=== PATIENT | female | born 1975 | race Hispanic/Latino ===

== ENCOUNTER 2018-03-16 16:20 | Observation (INO) | payer MEDICAID ==
[2018-03-16 16:26] VITALS: BMI 24.8
--- NOTE | 2018-03-16 16:58 | ED PDOC ---
Arrival/HPI - General Chief Complaint: Lower Extremity Problem/Injury Time Seen by Provider: 03/16/18 16:27 Historian: Patient - History of Present Illness Narrative History of Present Illness (Text): 03/16/18 16:56 42 year old female presents to the Emergency department complaining of blister to left heel. Patient was evaluated yesterday at [facility] and was discharged home with Bactrim and Keflex. Since then, redness to left ankle has increased and blister has increased. Patient denies any fever, chills, chest pain, shortness of breath, nausea, vomiting, diarrhea, urinary symptoms, back pain, neck pain, headache, dizziness, trauma/injury, suicidal/homicidal ideation or any other complaints. Time/Duration: 24 hours Symptom Onset: Gradual Symptom Course: Unchanged Context: Home Past Medical History - Provider Review Nursing Documentation Reviewed: Yes - Infectious Disease Hx of Infectious Diseases: None - Tetanus Immunization Tetanus Immunization: Unknown - Reproductive Menopause: No - Past Medical History Past Medical History: Unable to Obtain - Cardiac Hx Hypertension: No - Pulmonary Hx Tuberculosis: No - Neurological Hx Seizures: No - HEENT Hx HEENT Disorder: No - Renal Hx Renal Disorder: No - Endocrine/Metabolic Hx Endocrine Disorders: No - Hematological/Oncological Hx Cancer: No Hx Hepatitis C: Yes Other/Comment: Genital warts+STD - Integumentary Hx Dermatological Disorder: No - Musculoskeletal/Rheumatological Hx Musculoskeletal Disorders: No - Gastrointestinal Hx Gastrointestinal Disorders: No - Genitourinary/Gynecological Hx Sexually Transmitted Diseases: No - Psychiatric Hx Bipolar Disorder: Yes Hx Depression: No Hx Schizophrenia: Yes Hx Substance Use: No - Past Surgical History Past Surgical History: Unable to Obtain - Anesthesia Hx Anesthesia: No - Suicidal Assessment Feels Threatened In Home Enviroment: No Family/Social History - Physician Review Nursing Documentation Reviewed: Yes Family/Social History: Unknown Family HX Smoking Status: Former Smoker Hx Alcohol Use: No Hx Substance Use: No Hx Substance Use Treatment: No Allergies/Home Meds Allergies/Adverse Reactions: Allergies mortensen Allergy (Intermediate, Verified 03/16/18 16:33) SWELLING apple Allergy (Verified 03/16/18 16:33) DIARRHEA Home Medications: Home Meds Medication Instructions Recorded Confirmed No Known Home Med 03/16/18 03/16/18 Review of Systems - Review of Systems Constitutional: absent: Fevers, Night Sweats ENT: absent: Rhinorrhea Respiratory: absent: SOB Cardiovascular: absent: Chest Pain Gastrointestinal: absent: Diarrhea, Nausea, Vomiting Genitourinary Female: absent: Dysuria Musculoskeletal: absent: Back Pain, Neck Pain Skin: Other (blister to left heel) Neurological: absent: Headache, Dizziness Endocrine: absent: Diaphoresis Physical Exam Vital Signs Reviewed: Yes Vital Signs Temp Pulse Resp BP Pulse Ox 03/16/18 16:26 99.0 F 82 18 128/67 100 Temperature: Afebrile Blood Pressure: Normal Pulse: Regular Respiratory Rate: Normal Appearance: Positive for: Non-Toxic, Comfortable, Other (disheveled) Pain Distress: None Mental Status: Positive for: Alert and Oriented X 3 - Systems Exam Head: Present: Atraumatic, Normocephalic Pupils: Present: PERRL Extroacular Muscles: Present: EOMI Conjunctiva: Present: Normal Mouth: Present: Moist Mucous Membranes Neck: Present: Normal Range of Motion Respiratory/Chest: Present: Clear to Auscultation, Good Air Exchange. No: Respiratory Distress, Accessory Muscle Use Cardiovascular: Present: Regular Rate and Rhythm, Normal S1, S2. No: Murmurs Abdomen: No: Tenderness, Distention, Peritoneal Signs Back: Present: Normal Inspection Upper Extremity: Present: Normal Inspection. No: Cyanosis, Edema Lower Extremity: Present: Normal ROM, Other (large blister to left heel, fissure to left heel, erythema and warmth extending to left ankle). No: Edema Neurological: Present: GCS=15, CN II-XII Intact, Speech Normal Skin: Present: Warm, Dry. No: Rashes Psychiatric: Present: Alert, Oriented x 3, Normal Insight, Normal Concentration Medical Decision Making ED Course and Treatment: 03/16/18 17:02 Impression: 42 year old female presents to the Emergency department complaining of blister to left foot. Plan: -- Blood culture, Wound culture -- Labs -- Clindamycin -- Reassess and disposition Prior Visits: Notes and results from previous visits were reviewed. Progress Notes: 03/16/18 17:02 Patient is currently living in a [facility] and is in current police custody by Tomy GRIFFIN. 03/16/18 19:10 Podiatry resident at bedside and evaluated. Lanced area with 18g needle. Wound sent for culture. Will need admission for IV antibiotics due to crossing a joint and worsening cellulitis. 03/16/18 19:38 Discussed case in detail with medical records secretary. Also discussed case in detail with Dr. Suggs who will admit the patient to the hospitalist. 03/16/18 20:19 - Lab Interpretations Lab Results: 03/16/18 18:11 03/16/18 18:11 Lab Results 03/16/18 18:11: Sodium 142, Potassium 4.4, Chloride 99, Carbon Dioxide 29, Anion Gap 18, BUN 9, Creatinine 0.7, Est GFR ( Amer) > 60, Est GFR (Non- Af Amer) > 60, Random Glucose 105, Calcium 9.4, Total Bilirubin 1.3, AST 35, ALT 48, Alkaline Phosphatase 67, Total Protein 7.3, Albumin 4.3, Globulin 3.0, Albumin/Globulin Ratio 1.4 03/16/18 18:11: WBC 15.3 H D, RBC 4.48, Hgb 13.0, Hct 38.1, MCV 85.0, MCH 29.0, MCHC 34.1, RDW 13.1, Plt Count 247, MPV 9.9, Gran % 79.3 H, Lymph % (Auto) 14.3 L, [place] % (Auto) 5.6, Eos % (Auto) 0.7 L, Baso % (Auto) 0.1, Gran # 12.10 H, Lymph # (Auto) 2.2, [place] # (Auto) 0.9 H, Eos # (Auto) 0.1, Baso # (Auto) 0.02 - Medication Orders Current Medication Orders: Discontinued Medications Clindamycin Phosphate 600 mg/ (Sodium Chloride) 54 mls @ 108 mls/hr IVPB STAT STA PRN Reason: Protocol Stop: 03/16/18 17:18 Last Admin: 03/16/18 18:05 Dose: 108 mls/hr eMAR Start Stop Document 03/16/18 18:05 MS (Rec: 03/16/18 18:28 MS [id number]) Intravenous Solution Start Date 03/16/18 Start Time 18:28 End Date 03/16/18 End time 18:58 Total Infusion Time 30 - Scribe Statement The provider has reviewed the documentation as recorded by the Scribmili Velarde All medical record entries made by the Scribe were at my direction and personally dictated by me. I have reviewed the chart and agree that the record accurately reflects my personal performance of the history, physical exam, medical decision making, and the department course for this patient. I have also personally directed, reviewed, and agree with the discharge instructions and disposition. Disposition/Present on Arrival - Present on Arrival Any Indicators Present on Arrival: No History of DVT/PE: No History of Uncontrolled Diabetes: No Urinary Catheter: No History of Decub. Ulcer: No History Surgical Site Infection Following: None - Disposition Have Diagnosis and Disposition been Completed?: Yes Diagnosis: Cellulitis, Leukocytosis, Bullae Disposition: HOSPITALIZED Disposition Time: 19:11 Patient Plan: Observation Patient Problems: Current Active Problems Problem Status Onset Bullae Acute Cellulitis Acute Leukocytosis Acute Condition: FAIR
[2018-03-16 18:42] LABS: ALB/GLOB RATIO 1.4 (1.1-1.8); ALBUMIN 4.3 g/dL (3.0-4.8); ALT/SGPT 48 U/L (7-56); AST/SGOT 35 U/L (14-36); BLOOD UREA NITROGEN 9 mg/dL (7-21); CALCIUM 9.4 mg/dL (8.4-10.5); GFR AFRICAN-AMERICAN > 60; GFR NON-AFRICAN AMERICAN > 60
[2018-03-16 18:46] LABS: BASO # 0.02 K/mm3 (0.0-2.0); BASO % 0.1 % (0.0-3.0); EOS # 0.1 (0.0-0.7); EOS % 0.7 % (1.5-5.0); GRAN # 12.1 (1.4-6.5); GRAN % 79.3 % (50.0-68.0); LYMPH # 2.2 (1.2-3.4); LYMPH % 14.3 % (22.0-35.0); MEAN CORPUSCULAR HGB CONC 34.1 g/dl (31.0-37.0); MEAN PLATELET VOLUME 9.9 fl (7.0-11.0); MONO # 0.9 (0.1-0.6); MONO % 5.6 % (1.0-6.0); RBC 4.48 10^6/uL (3.5-6.1); RED CELL DISTRIBUTION WIDTH 13.1 % (11.5-14.5); WHITE BLOOD COUNT 15.3 10^3/ul (4.5-11.0)
--- NOTE | 2018-03-16 21:03 | CP.PCM.HP ---
<VadimVida - Last Filed: 03/16/18 21:03> History of Present Illness - History of Present Illness History of Present Illness: Patient is a 42 year old female with PMH of multiple psychiatric disorders who presents to the ED complaining of blister to her left heel/lateral malleolus. Patient says this started yesterday and she does not remember it rubbing on anything (shoes, etc.) or burning her foot. She does admit to a recent history of dry skin in that area that she saw a oxyhydrogen welder for and she said they " shaved the area down" but then after she left the skin cracked and caused her some problems. Patient says she was seen at [facility] for the blister yesterday and they gave her Bactrim and Keflex which she took. She says she noticed this blister grew in size and because erythematous in the surrounding area so she decided to come to the hospital today. Patient denies any fever, chills, chest pain, shortness of breath, nausea, vomiting, diarrhea, urinary symptoms, back pain, neck pain, headache, dizziness, trauma/injury, suicidal/ homicidal ideation or any other complaints at this time. PMH: Bipolar disorder, Depression, Anxiety Meds: denies Allergies: NKDA PSH: denies FH: mother with unknown cancer SH: denies tobacco, alcohol, and drug use Present on Admission - Present on Admission Any Indicators Present on Admission: No Review of Systems - Review of Systems All systems: reviewed and no additional remarkable complaints except (as per HPI ) Past Patient History - Infectious Disease Hx of Infectious Diseases: None - Tetanus Immunizations Tetanus Immunization: Unknown - Past Social History Smoking Status: Former Smoker - CARDIAC Hx Hypertension: No - PULMONARY Hx Tuberculosis: No - NEUROLOGICAL Hx Seizures: No - HEENT Hx HEENT Problems: No - RENAL Hx Chronic Kidney Disease: No - ENDOCRINE/METABOLIC Hx Endocrine Disorders: No - HEMATOLOGICAL/ONCOLOGICAL Hx Cancer: No Hx Hepatitis C: Yes Other/Comment: Genital warts+STD - INTEGUMENTARY Hx Dermatological Problems: No - MUSCULOSKELETAL/RHEUMATOLOGICAL Hx Musculoskeletal Disorders: No - GASTROINTESTINAL Hx Gastrointestinal Disorders: No - GENITOURINARY/GYNECOLOGICAL Hx Sexually Transmitted Disorders: No - PSYCHIATRIC Hx Bipolar Disorder: Yes Hx Depression: No Hx Schizophrenia: Yes Hx Substance Use: No - SURGICAL HISTORY Hx Surgeries: No - ANESTHESIA Hx Anesthesia: No Meds Allergies/Adverse Reactions: Allergies Allergy/AdvReac Type Severity Reaction Status Date / Time mortensen Allergy Intermediate SWELLING Verified 03/16/18 16:33 apple Allergy DIARRHEA Verified 03/16/18 16:33 Physical Exam - Constitutional Appears: Non-toxic, No Acute Distress - Head Exam Head Exam: ATRAUMATIC, NORMAL INSPECTION, NORMOCEPHALIC - Eye Exam Eye Exam: EOMI, Normal appearance, PERRL - ENT Exam ENT Exam: Mucous Membranes Moist, Normal Exam - Neck Exam Neck exam: Positive for: Normal Inspection - Respiratory Exam Respiratory Exam: Clear to Auscultation Bilateral, NORMAL BREATHING PATTERN - Cardiovascular Exam Cardiovascular Exam: REGULAR RHYTHM, RRR, +S1, +S2. absent: Gallop, Rubs, Systolic Murmur - GI/Abdominal Exam GI & Abdominal Exam: Normal Bowel Sounds, Soft. absent: Tenderness - Extremities Exam Extremities exam: Positive for: joint swelling (left ankle), tenderness (left lateral malleolus). Negative for: calf tenderness, pedal edema Additional comments: Left lateral malleolus with swelling and erythema; 4cm x 4cm blister of the heel just below the LM - Back Exam Back exam: NORMAL INSPECTION - Neurological Exam Neurological exam: Alert, Oriented x3 - Psychiatric Exam Psychiatric exam: Normal Affect, Normal Mood - Skin Skin Exam: Dry, Intact, Normal Color, Warm Results - Vital Signs Recent Vital Signs: Last Vital Signs Temp 98.7 F 03/16/18 18:34 Pulse 78 03/16/18 18:34 Resp 16 03/16/18 18:34 BP 120/63 03/16/18 18:34 Pulse Ox 99 03/16/18 18:34 - Labs Result Diagrams: 03/16/18 18:11 03/16/18 18:11 Assessment & Plan - Assessment and Plan (Free Text) Assessment: Patient is a 42 year old female with PMH of multiple psychiatric disorders who presents with left heel blister and surrounding cellulitis Plan: Blister with Surrounding cellulitis of the left heel/ankle * Afebrile, no leukocytosis * Will continue clindamycin 600 mg IV Q8H * Infectious Disease consulted (Dr. Us)- help appreciated * Wound care consult * Podiatry consulted (Ryan) - help appreciated * Blood culture * Wound culture Prophylaxis * DVT: SCDs * GI: not indicated at this time Discussed with Dr. Suggs <Buck Suggs - Last Filed: 03/17/18 05:46> Results - Vital Signs Recent Vital Signs: Last Vital Signs Temp 98.4 F 03/17/18 00:24 Pulse 85 03/17/18 00:24 Resp 16 03/17/18 00:24 BP 118/74 03/17/18 00:24 Pulse Ox 99 03/16/18 23:08 - Labs Result Diagrams: 03/16/18 18:11 03/16/18 18:11 Attending/Attestation - Attestation I have personally seen and examined this patient.: Yes I have fully participated in the care of the patient.: Yes I have reviewed all pertinent clinical information: Yes Notes (Text): 03/17/18 05:46 Patient was seen when she was in PES room in the ER. Agree with history, physical examination ,assessment and plan.
[2018-03-17] MEDS: Vancomycin 1gm in NS 250ml 1 GM/250 ML BAG IVPB SCH ×2 (00:02→11:26)
[2018-03-17 07:31] LABS: BASO # 0.02 K/mm3 (0.0-2.0); BASO % 0.2 % (0.0-3.0); EOS # 0.3 (0.0-0.7); EOS % 3.2 % (1.5-5.0); GRAN # 6.26 (1.4-6.5); GRAN % 68.5 % (50.0-68.0); HEMOGLOBIN 12.6 g/dL (12.0-16.0); LYMPH # 1.6 (1.2-3.4); LYMPH % 17.3 % (22.0-35.0); MEAN CELL VOLUME 85.5 fl (80.0-105.0); MEAN CORPUSCULAR HEMOGLOBIN 28.5 pg (25.0-35.0); MEAN CORPUSCULAR HGB CONC 33.3 g/dl (31.0-37.0); MEAN PLATELET VOLUME 9.3 fl (7.0-11.0); MONO % 10.8 % (1.0-6.0); RBC 4.42 10^6/uL (3.5-6.1); RED CELL DISTRIBUTION WIDTH 13.3 % (11.5-14.5); WHITE BLOOD COUNT 9.1 10^3/ul (4.5-11.0)
[2018-03-17 08:13] LABS: ALB/GLOB RATIO 1.4 (1.1-1.8); ALT/SGPT 39 U/L (7-56); AST/SGOT 47 U/L (14-36); BLOOD UREA NITROGEN 8 mg/dL (7-21); GFR AFRICAN-AMERICAN > 60; GFR NON-AFRICAN AMERICAN > 60
--- NOTE | 2018-03-17 12:03 | RAD ---
PROCEDURE: Left Foot Radiographs. HISTORY: r/o osteomyelitis COMPARISON: None. FINDINGS: BONES: Normal. No fracture. JOINTS: Normal. SOFT TISSUES: Normal. OTHER FINDINGS: None. IMPRESSION: Normal left foot radiographs.
--- NOTE | 2018-03-17 16:32 | CP.PCM.PN ---
<Elie Olmos - Last Filed: 03/17/18 16:34> Subjective - Date & Time of Evaluation Date of Evaluation: 03/17/18 Time of Evaluation: 16:30 - Subjective Subjective: Patient seen and examined at bedside. Per nursing no acute events occurred overnight. Patient reports her blister swelling up again. She denies any fevers , chills, chest pain, shortness of breath, headaches, or any other complaints. Objective - Vital Signs/Intake and Output Vital Signs (last 24 hours): Temp Pulse Resp BP Pulse Ox 98.1 F 75 18 110/65 100 03/17/18 16:03 03/17/18 16:03 03/17/18 16:03 03/17/18 16:03 03/17/18 16:03 Intake and Output: 03/17/18 03/17/18 06:59 18:59 Intake Total 0 Balance 0 - Medications Medications: Current Medications Clindamycin Phosphate 600 mg/ (Sodium Chloride) 54 mls @ 102 mls/hr IVPB Q8 DANIEL PRN Reason: Protocol Last Admin: 03/17/18 14:09 Dose: 102 mls/hr Vancomycin HCl (Vancomycin 1gm) 1 gm in 250 mls @ 167 mls/hr IVPB Q12H DANIEL PRN Reason: Protocol Last Admin: 03/17/18 11:26 Dose: 167 mls/hr - Labs Labs: 03/17/18 07:00 03/17/18 07:00 - Head Exam Head Exam: ATRAUMATIC, NORMAL INSPECTION, NORMOCEPHALIC - Eye Exam Eye Exam: EOMI, Normal appearance, PERRL - ENT Exam ENT Exam: Mucous Membranes Moist, Normal Oropharynx - Respiratory Exam Respiratory Exam: Clear to Ausculation Bilateral, NORMAL BREATHING PATTERN - Cardiovascular Exam Cardiovascular Exam: REGULAR RHYTHM, +S1, +S2 - GI/Abdominal Exam GI & Abdominal Exam: Soft, Normal Bowel Sounds - Back Exam Back Exam: NORMAL INSPECTION. absent: paraspinal tenderness - Neurological Exam Neurological Exam: Alert, Awake, Normal Gait, Oriented x3 - Psychiatric Exam Psychiatric exam: Normal Affect, Normal Mood - Skin Skin Exam: Dry Additional comments: Blister on left heel black and erythematous around the borders. Assessment and Plan - Assessment and Plan (Free Text) Assessment: Patient is a 42 year old female with PMH of multiple psychiatric disorders who presents with left heel blister and surrounding cellulitis Plan: Blister with Surrounding cellulitis of the left heel/ankle * Afebrile, no leukocytosis * Will continue clindamycin 600 mg IV Q8H * Continue Vancomycin 1gm IV Q12. * Infectious Disease consulted (Dr. Us)- help appreciated * Wound care consult * Podiatry consulted (Ryan) - help appreciated * Blood culture pending. * Wound culture final pending. Prophylaxis * DVT: SCDs * GI: not indicated at this time Discussed with Dr. Guerline Olmos, PGY-1 <Avila Cunha - Last Filed: 03/18/18 18:49> Objective - Vital Signs/Intake and Output Vital Signs (last 24 hours): Temp Pulse Resp BP Pulse Ox 98.2 F 71 20 97/55 L 95 03/18/18 06:00 03/18/18 06:00 03/18/18 06:00 03/18/18 06:00 03/18/18 06:00 Intake and Output: 03/18/18 03/18/18 06:59 18:59 Intake Total 840 Balance 840 - Labs Labs: 03/18/18 06:20 03/18/18 06:20 Attending/Attestation - Attestation I have personally seen and examined this patient.: Yes I have fully participated in the care of the patient.: Yes I have reviewed all pertinent clinical information, including history, physical exam and plan: Yes Notes (Text): 03/18/18 18:48 Attending note; Patient seen and examined with resident. Patient is a 42 year old female with PMH of drug abuse , hepatitis C is admitted with left heel blister and surrounding cellulitis. Podiatry evaluation appreciated. Continue local wound care. Started on IV vancomycin. Culture is pending. Possible discharge tomorrow if clinically stable. Patient follows up with online merchandising coordinator and PMD as outpatient in [place]. 03/18/18 18:49
--- NOTE | 2018-03-17 19:37 | CP.PCM.CON ---
History of Present Illness - History of Present Illness History of Present Illness: Podiatry Consult note for Dr. Peters 42F seen at bedside for blister to left heel and cellulitic changes. Patient states that a few days ago she was treated by a report checker for a fissure on her heel. After leaving the report checker she developed a large blister on the outside of the heel with dark fluid inside of it as well as redness surrounding the blister. Patient states that the blister was lanced in the ED yesterday but she is still experiencing pain and some fluid within the blister at this time. She denies any recent trauma to the area. Patient is AAO x 3 and NAD during examination. Denies any further pedal complaints. Denies any recent N/V/F/C/CP/ SOB/D/posterior calf pain when squeezed. She denies any alcohol, tobacco or drug use. States that she is allergic to mortensen and apple. Review of Systems - Review of Systems All systems: reviewed and no additional remarkable complaints except Review of Systems: as per HPI Past Patient History - Infectious Disease Hx of Infectious Diseases: None - Tetanus Immunizations Tetanus Immunization: Unknown - Past Social History Smoking Status: Current Some Days Smoker - CARDIAC Hx Hypercholesterolemia: Yes Hx Hypertension: No - PULMONARY Hx Respiratory Disorders: No Hx Tuberculosis: No - NEUROLOGICAL Hx Neurological Disorder: No Hx Seizures: No - HEENT Hx HEENT Problems: No - RENAL Hx Chronic Kidney Disease: No - ENDOCRINE/METABOLIC Hx Endocrine Disorders: No - HEMATOLOGICAL/ONCOLOGICAL Hx Cancer: No Hx Hepatitis C: Yes - INTEGUMENTARY Hx Dermatological Problems: No - MUSCULOSKELETAL/RHEUMATOLOGICAL Hx Musculoskeletal Disorders: No Hx Falls: No - GASTROINTESTINAL Hx Gastrointestinal Disorders: No - GENITOURINARY/GYNECOLOGICAL Hx Sexually Transmitted Disorders: Yes Other/Comment: Genital warts + STD - PSYCHIATRIC Hx Bipolar Disorder: Yes Hx Depression: Yes Hx Schizophrenia: Yes Hx Substance Use: No - SURGICAL HISTORY Hx Surgeries: No - ANESTHESIA Hx Anesthesia: No Meds Allergies/Adverse Reactions: Allergies Allergy/AdvReac Type Severity Reaction Status Date / Time mortensen Allergy Intermediate SWELLING Verified 03/16/18 16:33 apple Allergy DIARRHEA Verified 03/16/18 16:33 - Medications Medications: Current Medications Clindamycin Phosphate 600 mg/ (Sodium Chloride) 54 mls @ 102 mls/hr IVPB Q8 DANIEL PRN Reason: Protocol Last Admin: 03/17/18 14:09 Dose: 102 mls/hr Vancomycin HCl (Vancomycin 1gm) 1 gm in 250 mls @ 167 mls/hr IVPB Q12H DANIEL PRN Reason: Protocol Last Admin: 03/17/18 11:26 Dose: 167 mls/hr Physical Exam - Constitutional Appears: Well, Non-toxic, No Acute Distress - Head Exam Head Exam: ATRAUMATIC, NORMOCEPHALIC - Extremities Exam Additional comments: LLE focused exam: Vasc: DP/PT pulses fully palpable 2/4 b/l. Skin temperature warm to warm from proximal to distal with increased skin temperature surrounding lanced blister site. CFT < 3 seconds to all digits b/l. Mild edema noted to skin surrounding blister site Neuro: Epicritic and protective sensation grossly intact b/l Derm: Approximately 3 cm x 3 cm lanced blister site noted to lateral aspect of patients left heel with roughly 2 cm of erythema surrounding it. Approximately 2 -3 cc of orange/brown thick fluid expressed from the lanced blister site. No malodor. MSK: POP to lanced blister site. No other gross deformities noted - Neurological Exam Neurological exam: Alert, Oriented x3 - Psychiatric Exam Psychiatric exam: Normal Affect, Normal Mood Results - Vital Signs Recent Vital Signs: Last Vital Signs Temp 98.1 F 03/17/18 16:03 Pulse 75 03/17/18 16:03 Resp 18 03/17/18 16:03 BP 110/65 03/17/18 16:03 Pulse Ox 100 03/17/18 16:03 - Labs Result Diagrams: 03/17/18 07:00 03/17/18 07:00 Labs: Laboratory Results - last 24 hr 03/17/18 03/17/18 07:00 07:00 WBC 9.1 D RBC 4.42 Hgb 12.6 Hct 37.8 MCV 85.5 MCH 28.5 MCHC 33.3 RDW 13.3 Plt Count 243 MPV 9.3 Gran % 68.5 H Lymph % (Auto) 17.3 L [place] % (Auto) 10.8 H Eos % (Auto) 3.2 Baso % (Auto) 0.2 Gran # 6.26 Lymph # (Auto) 1.6 [place] # (Auto) 1.0 H Eos # (Auto) 0.3 Baso # (Auto) 0.02 Sodium 140 Potassium 4.5 Chloride 102 Carbon Dioxide 29 Anion Gap 14 BUN 8 Creatinine 0.7 Est GFR ( Amer) > 60 Est GFR (Non-Af Amer) > 60 Random Glucose 91 Calcium 9.0 Phosphorus 4.0 Magnesium 1.9 Total Bilirubin 1.7 H AST 47 H D ALT 39 Alkaline Phosphatase 57 Total Protein 6.8 Albumin 4.0 Globulin 2.8 Albumin/Globulin Ratio 1.4 Assessment & Plan - Assessment and Plan (Free Text) Assessment: 42F seen with infected bullae of left lateral heel with surrounding cellulitic changes Plan: Patient seen and evaluated with attending Dr. Peters Afebrile, WBC 9.1 from 15.3 on admission Continue IV abx per ID 03/16 wound cx from bullae site pending 03/17 L foot Xray: Normal foot radiographs 03/17 MRI left foot ordered; f/u results Blister site dressed with xeroform, DSD No plan for surgical intervention at this time Podiatry will continue to follow while patient in house - Date & Time Date: 03/17/18 Time: 19:44
--- NOTE | 2018-03-17 20:09 | CP.PCM.PCO ---
Physician Communication Note - Physician Communication Note Physician Communication Note: pt. not in room -reviewed chart, started abx, will see bora.
[2018-03-18] MEDS: Vancomycin 1gm in NS 250ml 1 GM/250 ML BAG IVPB SCH (02:55)
[2018-03-18 06:48] LABS: BASO # 0.03 K/mm3 (0.0-2.0); BASO % 0.4 % (0.0-3.0); EOS # 0.4 (0.0-0.7); EOS % 5.8 % (1.5-5.0); GRAN # 3.84 (1.4-6.5); GRAN % 54.5 % (50.0-68.0); HEMOGLOBIN 11.8 g/dL (12.0-16.0); LYMPH # 2.1 (1.2-3.4); LYMPH % 29.8 % (22.0-35.0); MEAN CELL VOLUME 85.7 fl (80.0-105.0); MEAN CORPUSCULAR HEMOGLOBIN 28.6 pg (25.0-35.0); MEAN CORPUSCULAR HGB CONC 33.4 g/dl (31.0-37.0); MEAN PLATELET VOLUME 9.6 fl (7.0-11.0); MONO # 0.7 (0.1-0.6); MONO % 9.5 % (1.0-6.0); RBC 4.12 10^6/uL (3.5-6.1); RED CELL DISTRIBUTION WIDTH 13.2 % (11.5-14.5); WHITE BLOOD COUNT 7.1 10^3/ul (4.5-11.0)
[2018-03-18 07:31] LABS: ALB/GLOB RATIO 1.4 (1.1-1.8); ALBUMIN 3.7 g/dL (3.0-4.8); ALT/SGPT 49 U/L (7-56); AST/SGOT 39 U/L (14-36); BLOOD UREA NITROGEN 9 mg/dL (7-21); CALCIUM 8.8 mg/dL (8.4-10.5); GFR AFRICAN-AMERICAN > 60; GFR NON-AFRICAN AMERICAN > 60
[2018-03-18 07:40] VITALS: BP 97/55; PULSE 71; RESP 20; TEMP 98.2; O2SAT 95
[2018-03-18] MEDS ORDERED: Enoxaparin 30 mg Syringe SC SCH (10:00)
--- NOTE | 2018-03-18 10:12 | MRI ---
PROCEDURE: MRI of the left foot without contrast HISTORY: left heel COMPARISON: TECHNIQUE: MRI of the left foot was performed in multiple planes using multiple pulse sequences. FINDINGS: There is no marrow edema in the calcaneus to suggest osteomyelitis. There is a mild amount of subcutaneous edema posterior to the calcaneus. The Achilles tendon is intact. The plantar fascia is unremarkable. IMPRESSION: No evidence of osteomyelitis
--- NOTE | 2018-03-18 12:42 | CP.PCM.PN ---
Subjective - Date & Time of Evaluation Date of Evaluation: 03/18/18 Time of Evaluation: 12:38 - Subjective Subjective: Podiatry Progress note for Dr. Davis 42F seen with attending Dr. Davis for lanced lateral left foot blister secondary to heel fissure. Patient is AAO x 3 and NAD at time of visit. Denies any acute overnight events or any new pedal complaints. States that pain is well controlled and denies any new drainage from the blister overnight. Denies any recent N/V/F/C/CP/SOB/D/posterior calf pain when squeezed Objective - Vital Signs/Intake and Output Vital Signs (last 24 hours): Temp Pulse Resp BP Pulse Ox 98.2 F 71 20 97/55 L 95 03/18/18 06:00 03/18/18 06:00 03/18/18 06:00 03/18/18 06:00 03/18/18 06:00 Intake and Output: 03/18/18 03/18/18 06:59 18:59 Intake Total 840 Balance 840 - Medications Medications: Current Medications Enoxaparin Sodium (Lovenox) 30 mg SC DAILY DANIEL PRN Reason: Protocol Famotidine (Pepcid) 40 mg PO HS DANIEL Clindamycin Phosphate 600 mg/ (Sodium Chloride) 54 mls @ 102 mls/hr IVPB Q8 DANIEL PRN Reason: Protocol Last Admin: 03/18/18 05:17 Dose: 102 mls/hr Vancomycin HCl (Vancomycin 1gm) 1 gm in 250 mls @ 167 mls/hr IVPB Q12H DANIEL PRN Reason: Protocol Last Admin: 03/18/18 02:55 Dose: 167 mls/hr - Labs Labs: 03/18/18 06:20 03/18/18 06:20 - Constitutional Appears: Well, Non-toxic, No Acute Distress - Head Exam Head Exam: ATRAUMATIC, NORMOCEPHALIC - Extremities Exam Additional comments: LLE focused exam: Vasc: DP/PT pulses fully palpable 2/4 b/l. Skin temperature warm to warm from proximal to distal with increased skin temperature surrounding lanced blister site. CFT < 3 seconds to all digits b/l. Mild edema noted to skin surrounding blister site Neuro: Epicritic and protective sensation grossly intact b/l Derm: Approximately 3 cm x 3 cm lanced blister site noted to lateral aspect of patients left heel with roughly 2 cm of erythema surrounding it. Approximately 2 -3 cc of orange/brown thick fluid expressed from the lanced blister site. No malodor. 1.5 cm posterior heel ulcer with surrounding hypertrophic tissue noted. No clinical signs of infection noted but connection noted to blister site MSK: POP to lanced blister site. No other gross deformities noted. No POP to fissure site - Neurological Exam Neurological Exam: Alert, Awake, Oriented x3 - Psychiatric Exam Psychiatric exam: Normal Affect, Normal Mood Assessment and Plan - Assessment and Plan (Free Text) Assessment: 42F seen with attending Dr. Davis for lanced lateral left foot blister secondary to heel fissure Plan: Patient seen and evaluated with attending Dr. Davis Afebrile, WBC 7.1 from 9.1 03/16 lanced blister wound cx: Staph Aureus 03/16 wound cx: GNR 03/17 L foot Xray: Normal foot radiographs 03/17 MRI left foot: No evidence of OM Blister site and fissure dressed with Duoderm in an attempt to soften the hard, hypertrophic callus formation for possible future debridement No plan for surgical intervention at this time Podiatry will continue to follow while patient in house
--- NOTE | 2018-03-18 15:51 | CP.PCM.DIS ---
<Elie Olmos - Last Filed: 03/18/18 16:19> Provider - Provider Date of Admission: 03/16/18 19:31 Attending physician: Avila Cunha MD Time Spent in preparation of Discharge (in minutes): 45 Hospital Course - Lab Results Lab Results: Most Recent Lab Values WBC 7.1 10^3/ul (4.5-11.0) D 03/18/18 06:20 RBC 4.12 10^6/uL (3.5-6.1) 03/18/18 06:20 Hgb 11.8 g/dL (12.0-16.0) L 03/18/18 06:20 Hct 35.3 % (36.0-48.0) L 03/18/18 06:20 MCV 85.7 fl (80.0-105.0) 03/18/18 06:20 MCH 28.6 pg (25.0-35.0) 03/18/18 06:20 MCHC 33.4 g/dl (31.0-37.0) 03/18/18 06:20 RDW 13.2 % (11.5-14.5) 03/18/18 06:20 Plt Count 229 10^3/uL (120.0-450.0) 03/18/18 06:20 MPV 9.6 fl (7.0-11.0) 03/18/18 06:20 Gran % 54.5 % (50.0-68.0) 03/18/18 06:20 Lymph % (Auto) 29.8 % (22.0-35.0) 03/18/18 06:20 Johnson % (Auto) 9.5 % (1.0-6.0) H 03/18/18 06:20 Eos % (Auto) 5.8 % (1.5-5.0) H 03/18/18 06:20 Baso % (Auto) 0.4 % (0.0-3.0) 03/18/18 06:20 Gran # 3.84 (1.4-6.5) 03/18/18 06:20 Lymph # (Auto) 2.1 (1.2-3.4) 03/18/18 06:20 Johnson # (Auto) 0.7 (0.1-0.6) H 03/18/18 06:20 Eos # (Auto) 0.4 (0.0-0.7) 03/18/18 06:20 Baso # (Auto) 0.03 K/mm3 (0.0-2.0) 03/18/18 06:20 Sodium 141 mmol/L (132-148) 03/18/18 06:20 Potassium 4.5 mmol/L (3.6-5.0) 03/18/18 06:20 Chloride 104 mmol/L (98-107) 03/18/18 06:20 Carbon Dioxide 29 mmol/L (21-33) 03/18/18 06:20 Anion Gap 13 (10-20) 03/18/18 06:20 BUN 9 mg/dL (7-21) 03/18/18 06:20 Creatinine 0.7 mg/dl (0.7-1.2) 03/18/18 06:20 Est GFR ( Amer) > 60 03/18/18 06:20 Est GFR (Non-Af Amer) > 60 03/18/18 06:20 Random Glucose 90 mg/dL (70-110) 03/18/18 06:20 Calcium 8.8 mg/dL (8.4-10.5) 03/18/18 06:20 Phosphorus 4.0 mg/dL (2.5-4.5) 03/17/18 07:00 Magnesium 1.9 mg/dL (1.7-2.2) 03/17/18 07:00 Total Bilirubin 0.7 mg/dL (0.2-1.3) 03/18/18 06:20 AST 39 U/L (14-36) H 03/18/18 06:20 ALT 49 U/L (7-56) 03/18/18 06:20 Alkaline Phosphatase 53 U/L (38-126) 03/18/18 06:20 Total Protein 6.4 g/dL (5.8-8.3) 03/18/18 06:20 Albumin 3.7 g/dL (3.0-4.8) 03/18/18 06:20 Globulin 2.7 gm/dL 03/18/18 06:20 Albumin/Globulin Ratio 1.4 (1.1-1.8) 03/18/18 06:20 HIV 1&2 Ag/Ab, 4th Gen Nonreactive (Nonreactive) 03/17/18 07:00 - Hospital Course Hospital Course: Patient is a 42 year old female with PMH of multiple psychiatric disorders who presents to the ED complaining of blister to her left heel/lateral malleolus. Patient says this started yesterday and she does not remember it rubbing on anything (shoes, etc.) or burning her foot. She does admit to a recent history of dry skin in that area that she saw a director [employer] for and she said they " shaved the area down" but then after she left the skin cracked and caused her some problems. Patient says she was seen at [facility] for the blister yesterday and they gave her Bactrim and Keflex which she took. She says she noticed this blister grew in size and because erythematous in the surrounding area so she decided to come to the hospital today. Patient denies any fever, chills, chest pain, shortness of breath, nausea, vomiting, diarrhea, urinary symptoms, back pain, neck pain, headache, dizziness, trauma/injury, suicidal/ homicidal ideation or any other complaints at this time. PMH: Bipolar disorder, Depression, Anxiety Meds: denies Allergies: NKDA PSH: denies FH: mother with unknown cancer SH: denies tobacco, alcohol, and drug use Hospital Course: Patient was admitted and cultures were drawn. Patient was grew Pseudomonas aureus on wound cultures. Patient was seen by Infectious Disease and Podiatry while admitted. Patient was discharged on Augmentin and Doxycycline for 7 day course and the following instructions. Imagin. Foot mri: negative for osteomyelitis 2. Foot xray: negative Discharge Instructions: 1. F/u with PMD within one week of discharge. 2. F/U with Podiatry within one week of discharge. 3. Take antibiotics as prescribed. 4. Return to hospital for any new or worsening symptoms. Discharge Exam - Head Exam Head Exam: ATRAUMATIC, NORMOCEPHALIC - Eye Exam Eye Exam: EOMI, Normal appearance, PERRL Pupil Exam: NORMAL ACCOMODATION, PERRL - ENT Exam ENT Exam: Mucous Membranes Moist, Normal Oropharynx - Respiratory Exam Respiratory Exam: Clear to PA & Lateral, NORMAL BREATHING PATTERN, UNREMARKABLE - Cardiovascular Exam Cardiovascular Exam: REGULAR RHYTHM, +S1, +S2 - GI/Abdominal Exam GI & Abdominal Exam: Normal Bowel Sounds, Unremarkable - Extremities Exam Additional comments: Left foot bandaged. No sign of discharge or erythema. - Neurological Exam Neurological exam: Alert, CN II-XII Intact, Oriented x3 - Psychiatric Exam Psychiatric exam: Normal Affect, Normal Mood - Skin Skin Exam: Dry, Intact, Normal Color Discharge Plan - Discharge Medications Prescriptions: Amoxicillin/Clavulanate [Augmentin 875 MG-125 MG] 1 tab PO BID #14 tab Doxycycline Hyclate [Doryx] 100 mg PO Q12 #14 cap - Follow Up Plan Condition: FAIR Disposition: HOME/ ROUTINE Instructions: Blisters, Cellulitis (DC), Leukocytosis (DC) Additional Instructions: 1. F/u with PMD within one week of discharge. 2. F/U with Podiatry within one week of discharge. 3. Take antibiotics as prescribed. 4. Return to hospital for any new or worsening symptoms. <Avila Cunha - Last Filed: 03/18/18 18:51> Provider - Provider Date of Admission: 03/16/18 19:31 Attending physician: Avila Cunha MD Hospital Course - Lab Results Lab Results: Most Recent Lab Values WBC 7.1 10^3/ul (4.5-11.0) D 03/18/18 06:20 RBC 4.12 10^6/uL (3.5-6.1) 03/18/18 06:20 Hgb 11.8 g/dL (12.0-16.0) L 03/18/18 06:20 Hct 35.3 % (36.0-48.0) L 03/18/18 06:20 MCV 85.7 fl (80.0-105.0) 03/18/18 06:20 MCH 28.6 pg (25.0-35.0) 03/18/18 06:20 MCHC 33.4 g/dl (31.0-37.0) 03/18/18 06:20 RDW 13.2 % (11.5-14.5) 03/18/18 06:20 Plt Count 229 10^3/uL (120.0-450.0) 03/18/18 06:20 MPV 9.6 fl (7.0-11.0) 03/18/18 06:20 Gran % 54.5 % (50.0-68.0) 03/18/18 06:20 Lymph % (Auto) 29.8 % (22.0-35.0) 03/18/18 06:20 Johnson % (Auto) 9.5 % (1.0-6.0) H 03/18/18 06:20 Eos % (Auto) 5.8 % (1.5-5.0) H 03/18/18 06:20 Baso % (Auto) 0.4 % (0.0-3.0) 03/18/18 06:20 Gran # 3.84 (1.4-6.5) 03/18/18 06:20 Lymph # (Auto) 2.1 (1.2-3.4) 03/18/18 06:20 Johnson # (Auto) 0.7 (0.1-0.6) H 03/18/18 06:20 Eos # (Auto) 0.4 (0.0-0.7) 03/18/18 06:20 Baso # (Auto) 0.03 K/mm3 (0.0-2.0) 03/18/18 06:20 Sodium 141 mmol/L (132-148) 03/18/18 06:20 Potassium 4.5 mmol/L (3.6-5.0) 03/18/18 06:20 Chloride 104 mmol/L (98-107) 03/18/18 06:20 Carbon Dioxide 29 mmol/L (21-33) 03/18/18 06:20 Anion Gap 13 (10-20) 03/18/18 06:20 BUN 9 mg/dL (7-21) 03/18/18 06:20 Creatinine 0.7 mg/dl (0.7-1.2) 03/18/18 06:20 Est GFR ( Amer) > 60 03/18/18 06:20 Est GFR (Non-Af Amer) > 60 03/18/18 06:20 Random Glucose 90 mg/dL (70-110) 03/18/18 06:20 Calcium 8.8 mg/dL (8.4-10.5) 03/18/18 06:20 Phosphorus 4.0 mg/dL (2.5-4.5) 03/17/18 07:00 Magnesium 1.9 mg/dL (1.7-2.2) 03/17/18 07:00 Total Bilirubin 0.7 mg/dL (0.2-1.3) 03/18/18 06:20 AST 39 U/L (14-36) H 03/18/18 06:20 ALT 49 U/L (7-56) 03/18/18 06:20 Alkaline Phosphatase 53 U/L (38-126) 03/18/18 06:20 Total Protein 6.4 g/dL (5.8-8.3) 03/18/18 06:20 Albumin 3.7 g/dL (3.0-4.8) 03/18/18 06:20 Globulin 2.7 gm/dL 03/18/18 06:20 Albumin/Globulin Ratio 1.4 (1.1-1.8) 03/18/18 06:20 HIV 1&2 Ag/Ab, 4th Gen Nonreactive (Nonreactive) 03/17/18 07:00 Attending/Attestation - Attestation I have personally seen and examined this patient.: Yes I have fully participated in the care of the patient.: Yes I have reviewed all pertinent clinical information, including history, physical exam and plan: Yes Notes (Text): 03/18/18 18:50 Attending note; Patient seen and examined with resident. Patient is a 42 year old female with PMH of drug abuse , hepatitis C is admitted with left heel blister and surrounding cellulitis. Podiatry evaluation appreciated. Continue local wound care. Started on IV vancomycin. Culture is positive for gram-negative rods and staph aureus. Identification pending. Patient clinically improved. Wanted to go home. Case discussed with ID in detail. Discharge with by mouth Augmentin and doxycycline since identification is not available at this time. Patient agreed to follow up with director app[employer] within 2 days. Diagnosis; Left heel wound History of drug abuse Hepatitis C
--- NOTE | 2018-03-18 16:44 | CP.PCM.CON ---
History of Present Illness - History of Present Illness History of Present Illness: 42 year old female with PMH of bipolar disorder, schizophrenia, Hepatitis C infection [place] [facility] [place] of a blister on her left heel and lateral malleolus. She apparently was wearing ill-fitting shoes and the blister occurred. She denies animal contacts, no soaking of feet in water, no nausea or vomiting, no fever or chills, no nausea or vomiting, no chest pain, no diarrhea , no dysuria. The blister was cleaned yesterday by Podiatry, showing Staph aureus and gram negative bacilli. Infectious Diseases consult is requested to further evaluate and manage. Review of Systems - Review of Systems All systems: reviewed and no additional remarkable complaints except (as per HPI ) Past Patient History - Infectious Disease Hx of Infectious Diseases: None - Tetanus Immunizations Tetanus Immunization: Unknown - Past Social History Smoking Status: Former Smoker - CARDIAC Hx Hypertension: No - PULMONARY Hx Tuberculosis: No - NEUROLOGICAL Hx Seizures: No - HEENT Hx HEENT Problems: No - RENAL Hx Chronic Kidney Disease: No - ENDOCRINE/METABOLIC Hx Endocrine Disorders: No - HEMATOLOGICAL/ONCOLOGICAL Hx Cancer: No Hx Hepatitis C: Yes Other/Comment: Genital warts+STD - INTEGUMENTARY Hx Dermatological Problems: No - MUSCULOSKELETAL/RHEUMATOLOGICAL Hx Musculoskeletal Disorders: No - GASTROINTESTINAL Hx Gastrointestinal Disorders: No - GENITOURINARY/GYNECOLOGICAL Hx Sexually Transmitted Disorders: No - PSYCHIATRIC Hx Bipolar Disorder: Yes Hx Depression: No Hx Schizophrenia: Yes Hx Substance Use: No - SURGICAL HISTORY Hx Surgeries: No - ANESTHESIA Hx Anesthesia: No Meds Home Medications: Home Medication List Medication Instructions Recorded Confirmed Type Amoxicillin/Clavulanate [Augmentin 1 tab PO BID #14 tab 03/18/18 Rx 875 MG-125 MG] Doxycycline Hyclate [Doryx] 100 mg PO Q12 #14 cap 03/18/18 Rx Allergies/Adverse Reactions: Allergies Allergy/AdvReac Type Severity Reaction Status Date / Time mortensen Allergy Intermediate SWELLING Verified 03/16/18 16:33 apple Allergy DIARRHEA Verified 03/16/18 16:33 - Medications Medications: Current Medications Clindamycin Phosphate 600 mg/ (Sodium Chloride) 54 mls @ 102 mls/hr IVPB Q8 DANIEL PRN Reason: Protocol Last Admin: 03/16/18 22:44 Dose: 102 mls/hr Physical Exam - Constitutional Appears: Non-toxic, Chronically Ill - Head Exam Head Exam: NORMAL INSPECTION - ENT Exam ENT Exam: Mucous Membranes Moist - Neck Exam Neck exam: Negative for: Meningismus - Respiratory Exam Respiratory Exam: Decreased Breath Sounds - Cardiovascular Exam Cardiovascular Exam: +S1, +S2 - GI/Abdominal Exam GI & Abdominal Exam: Soft. absent: Tenderness - Extremities Exam Additional comments: left foot with dressings in place Results - Vital Signs Recent Vital Signs: Last Vital Signs Temp 98.4 F 03/16/18 23:08 Pulse 85 03/16/18 23:08 Resp 16 03/16/18 23:08 BP 118/74 03/16/18 23:08 Pulse Ox 99 03/16/18 23:08 - Labs Result Diagrams: 03/18/18 06:20 03/18/18 06:20 Assessment & Plan - Assessment and Plan (Free Text) Plan: Assessment Left foot infected blister/ skin and skin structure infection with Staph aureus and gram negative bacilli bipolar disorder schizophrenia Hepatitis C infection Plan Started Vancomycin and Rocephin pending sensitivities of the Staph aureus and identification and sensitivities of the gram negative bacilli in the wound follow up further plans of Podiatry will monitor clinically discussed with Dr. Cunha
[2018-03-18] MEDS ORDERED: cefTRIAXone 1 gm 1 GM/100 ML BAG IVPB SCH (16:45)
== END 2018-03-18 18:42 | disposition home or self-care (01) ==
LOC: ED 16:20 → ERH 19:31 → 5RSO 21:34 → 5RNO 03-17 12:14
PROVIDERS: ADMIT Internal Medicine; ATTEND Internal Medicine
DX: L03.116 Cellulitis of left lower limb (principal); S90.822A Blister (nonthermal), left foot, initial encounter; B19.20 Unspecified viral hepatitis C without hepatic coma; F31.9 Bipolar disorder, unspecified; F20.9 Schizophrenia, unspecified; Z87.891 Personal history of nicotine dependence
CPT/HCPCS: 36415; 73630; 73718; 80053; 83735; 84100; 85025; 87040; 87070; 87389; 96365; 99284; G0378